=== PATIENT | male | born 1985 | race Caucasian/White ===

== ENCOUNTER 2022-02-03 13:19 | Outpatient (CLI) | payer BC, SELFPAY ==
[2022-02-03 15:12] LABS: Albumin* 4.8 g/dL (3.3-5.0); Chloride* 104 mmol/L (96-114); Potassium* 4.6 mmol/L (3.6-5.1); Sodium* 139 mmol/L (135-149)
[2022-02-03 15:14] LABS: Aspartate Amino Transferase* 21 U/L (12-35); Bilirubin Total* 0.7 mg/dL (0.1-1.5); Blood Urea Nitrogen* 22 mg/dL (5-24); Carbon Dioxide* 28 mmol/L (20-32); Cholesterol* 182 mg/dL (90-199); Creatinine* 0.7 mg/dL (0.5-1.5); Estimated Glomerular Filt Rate 122 ml/min; Total Protein* 7.8 g/dL (6.0-8.3)
[2022-02-03 15:15] LABS: Alanine Aminotransferase* 18 U/L (4-50); Alkaline Phosphatase* 55 U/L (40-150); Calcium* 9.6 mg/dL (8.4-10.6); Glucose* 92 mg/dL (60-115); HDL Cholesterol* 48 mg/dL (>=40); LDL Cholesterol Calculated 119 mg/dL (<100); Triglycerides* 74 mg/dL (40-149)
== END 2022-02-03 13:20 | disposition home or self-care (01) ==
PROVIDERS: PCP Family Medicine; Visit Provider Family Medicine
DX: Z00.00 Encounter for general adult medical examination without abnormal findings (principal); E78.1 Pure hyperglyceridemia; R63.5 Abnormal weight gain; Z13.6 Encounter for screening for cardiovascular disorders
CPT/HCPCS: 80053; 80061